=== PATIENT | female | born 1970 | race Caucasian/White ===

== ENCOUNTER 2016-12-13 00:30 | Emergency (ER) | payer OTHER ==
[~2016-12-13 00:30] MED LIST: ALLEGRA-D1 TAB.SR .; BCP; COMPAZINE25 M1 RC; CYCLOBENZAPRINE10 MG PO; CYTOMEL25 MC1 PO; DARVOCET-N 1001 TAB PO; LOW-OGESTREL1 TAB; NO HOME MEDICATION XX; PERCOCET 5/3251 TAB PO; PHENERGAN25 MG PO; PRILOSEC OTC20 MG; SUMATRIPTAN PO; THYROID MED; ULTRAM50 MG PO; WELLBUTRIN XL300 MG; YASMIN 28 TABLE1 TAB; YAZ 28 TABLET1 TAB; ZOFRAN4 MG PO; ZYRTEC-D TABLE1 EACH PO
[2016-12-13] MEDS ORDERED: SYNTHROID25 MC1 PO (00:45)
[2016-12-13] MEDS ORDERED: IMITREX100 M2 PO (00:46)
[2016-12-13 01:52] LABS: BASO % 0.7 % (0-2); BASO ABSOLUTE COUNT 0.1 tho/cmm (0.0-0.2); EOS % 1.5 % (0-7); EOSINOPHIL ABSOLUTE COUNT 0.1 tho/cmm (0.0-0.7); HCT-HEMATOCRIT 40.5 % (34.0-49.0); IMMATURE GRANULOCYTES ABSOLUTE 0.01 tho/cmm (0-0.03); IMMATURE GRANULOCYTES PERCENT 0.1 % (0-0.3); LYMPH % 40.2 % (20-45); MCH (MEAN CORPUSCULAR HGB) 27.3 pg (28.0-32.0); MCHC MEAN CORPUSCULAR HGB CONC 32.1 % (32.0-36.0); MCV (MEAN CELL VOLUME) 84.9 fl (82.0-96.0); MEAN PLATELET VOLUME 9.9 cmc (9.4-12.4); MONO % 9.8 % (0-12); MONOCYTE ABSOLUTE COUNT 0.7 tho/cmm (0.0-1.2); NEUTROPHIL ABSOLUTE COUNT 3.5 tho/cmm (1.6-8.0); NEUTROPHIL-AUTOMATED 3.5 tho/cmm (1.6-8.0); NEUTROPHILS % 47.7 % (40-80); PLATELET COUNT 302 tho/cmm (150-450); RED BLOOD COUNT 4.77 mil/cmm (4.00-5.20); RED CELL DISTRIBUTION WIDTH 13.5 % (12.4-16.4); WHITE BLOOD COUNT 7.4 tho/cmm (4.0-10.0)
[2016-12-13 02:10] LABS: PREGNANCY-SERUM NEGATIVE (NEGATIVE)
[2016-12-13 02:26] LABS: ALBUMIN 3.9 g/dl (3.5-5.0); ALKALINE PHOSPHATASE 67 U/L (33-138); ALT/SGPT 16 U/L (12-78); BILIRUBIN,TOTAL 0.3 mg/dl (0-1.5); BLOOD UREA NITROGEN 14 mg/dl (6-24); CALCIUM 8.6 mg/dl (8.5-10.5); CARBON DIOXIDE-VENOUS 29 mmol/L (22-32); CHLORIDE 104 mmol/l (96-110); GLUCOSE 84 mg/dL (70-110); SODIUM 139 mmol/L (135-145); T4 (THYROXINE) 8.6 ug/dl (5.0-12.6); eGFR VALUE FOR BLACK >90 mL/Min
[2016-12-13 02:28] LABS: ANION GAP 11 mmol/L (0-20); AST/SGOT 17 U/L (10-40); MAGNESIUM 2.5 mg/dl (1.3-2.6); POTASSIUM 4.5 mmol/L (3.7-5.1)
[2016-12-13 02:31] LABS: TSH-THYROID STIMULATING HORM. 5.02 uIU/ml (0.40-3.80)
[2017-04-22] MEDS ORDERED: SUDAFED 12 HOU120 M1 PO (23:25)
[2017-05-08] MEDS ORDERED: CLINDAMYCIN HC150 M1 PO (09:34)
[2017-05-08] MEDS ORDERED: NORCO 5-325 TA1 EACH PO (10:07)
[2017-05-08] MEDS ORDERED: KEFLEX500 M4 PO (10:07)
[2017-05-08] MEDS ORDERED: ZOFRAN ODT4 MG PO (10:07)
== END 2016-12-13 03:33 ==
LOC: EDMED 00:30
PROVIDERS: Emergency Medicine
DX: F60.3 Borderline personality disorder (principal); R20.0 Anesthesia of skin; I10 Essential (primary) hypertension; Z79.899 Other long term (current) drug therapy

== ENCOUNTER 2017-01-23 20:03 | Emergency (ER) | payer OTHER ==
[~2017-01-23 20:03] MED LIST changes: +IMITREX100 M2 PO; +SYNTHROID25 MC1 PO
[2017-01-23] MEDS ORDERED: AMOXICILLIN500 M1 PO (20:36)
[2017-01-23] MEDS ORDERED: ZITHROMAX250 M1 PO (22:20)
[2017-01-23] MEDS ORDERED: PROAIR HFA8.5 GM INH (22:41)
[2017-04-22] MEDS ORDERED: SUDAFED 12 HOU120 M1 PO (23:25)
[2017-05-08] MEDS ORDERED: CLINDAMYCIN HC150 M1 PO (09:34)
[2017-05-08] MEDS ORDERED: KEFLEX500 M4 PO (10:07)
[2017-05-08] MEDS ORDERED: NORCO 5-325 TA1 EACH PO (10:07)
[2017-05-08] MEDS ORDERED: ZOFRAN ODT4 MG PO (10:07)
== END 2017-01-23 22:27 ==
LOC: EDMED 20:03
DX: J01.90 Acute sinusitis, unspecified (principal); J40 Bronchitis, not specified as acute or chronic; G43.909 Migraine, unspecified, not intractable, without status migrainosus
CPT/HCPCS: J3030